=== PATIENT | male | born 2000 | race Caucasian/White ===

== ENCOUNTER 2024-05-14 23:27 | Emergency (ER) | payer BC, SELFPAY ==
[2024-05-14 23:35] VITALS: BP 126/71; PULSE 108; RESP 18; TEMP 36.1; O2SAT 95; BMI 30.8
--- NOTE | 2024-05-14 23:54 | ED_ITS ---
HPI - General Adult General Time Seen by Provider: 23:54 Date Seen: 05/22/24 Chief complaint: Edema Stated complaint: L swollen, hot/painful Time Seen by Provider: 05/14/24 23:53 Source: patient and RN notes reviewed Mode of arrival: ambulatory Limitations: no limitations History of Present Illness HPI narrative: This 23-year-old male is coming in with left calf pain that has been progressively worsening over the last 4 days. He notes absolutely no trauma, does not remember bumping it, remembers no pain with anything like going upper downstairs. There is no history of trauma, he has had no travel. He has had no fevers or chills, no night sweats. He notes no pain elsewhere in muscles, no joint pains. It hurts in the calf, he has had progressive increase in pain with attempts to ambulate, hurts to bear any weight. He is not on any medicines outside of inhalers for asthma. He has had no recent illness. There is family history of blood clots per his report although he has never personally had 1. He has tried Tylenol and ibuprofen without any relief of pain. Related Data Previous Rx's ?Medication ?Instructions ?Recorded ketorolac 10 mg tablet 10 mg PO Q6H PRN pain #20 tabs 05/15/24 Allergies Allergy/AdvReac Type Severity Reaction Status Date / Time iodine Allergy Intermediate Verified 05/14/24 23:39 Review of Systems Status of ROS: Reports: 6 or more systems reviewed and unremarkable except as noted in History and below [facility] Medical History (Updated 05/15/24 @ 02:38 by Neeta Rousseau MD) Asthma ?J45.909 - Unspecified asthma, uncomplicated (ICD-10) Social History Smoking Status: Current every day smoker Do you use any of these nicotine containing products: E-Cigarettes and Vaping Products Second hand tobacco smoke exposure: No How often do you have a drink containing alcohol: 2-4 times a month AUDIT-C Alcohol total score: 2 Non-prescribed substance use: marijuana (any form) Exam Const: Vital Signs, click to edit/add: Vital Signs - 24 hr 05/14/24 23:35 05/15/24 00:39 05/15/24 01:43 Temperature 97.0 F L Pulse Rate 58 L Pulse Rate [Left F emoral] 108 H 110 H Respiratory Rate 18 18 Blood Pressure Blood Pressure [Ri t Upper Arm] 126/71 127/79 Pulse Oximetry 95 91 90 Oxygen Delivery Me thod Room Air Room Air Room Air 05/15/24 02:02 05/15/24 02:31 Temperature Pulse Rate Pulse Rate [Left F emoral] Respiratory Rate 16 Blood Pressure 135/84 148/95 H Blood Pressure [Ri ght Upper Arm] Pulse Oximetry Oxygen Delivery Me thod This 23-year-old male is alert, interactive, no apparent distress but does seem to be in pain. Pupils are equal round reactive, sclera clear, face atraumatic, speech is normal. Lungs are clear, good air entry, no wheezing or crackles, no tachypnea, no prolonged expiratory phase. CV fast but regular, no murmur, normal S1-S2, no S3-S4. Inspection of both of his lower extremities reveals mild indentation of sock line on both lower extremities. I note no erythema, no significant edema, neurovascular is intact with normal sensation, normal peripheral pulses bilaterally. If I palpate anywhere over his left calf he has excruciating pain, pain seems to be out of proportion to examination. He has no pain about the ankle on the left side no joint effusion, can mobilize the ankle. There is no pain about his left knee, no popliteal fossa masses noted or tenderness. Touching his left lower extremity anywhere is excruciating for him. Initially when I just palpated along his anterior tibia he grimaced in yelled out in pain but when I asked later where his pain was he states it is more in the calf. I did go back over the anterior tibial area and he states it really was not that tender there. He cries out in pain if I palpate anywhere over the medial or lateral gastrocnemius muscle bodies. Documenting provider has reviewed patient's vital signs: yes Course Course ED Course: This patient seems to have pain out of proportion to examination but no trauma. He has normal distal sensation and pulses, this would be extremely unusual witho ut trauma to be having a compartment syndrome that is developing. Blood clot is a possibility, will do veinous ultrasound. Will do screening labs, will include D-dimer and CK. I doubt that this is infectious. Again without trauma, doubt that this is development of regional pain syndrome. It is difficult to pinpoint exactly what the etiology is here, again without trauma, doubt any fracture or muscle injury. Did look on [place] prescribing website, patient has no prescriptions within the last year. Reevaluation(s) Time of Reevaluation #1: 01:06 Reevaluation #1: Patient currently sleeping, does awaken easily. Went in to advise him that I have ordered x-rays of his lower extremity just to ensure no bony pathology. The preliminary report from the bondactor machine operator is negative for DVT. Time of Reevaluation #2: 02:30 Reevaluation #2: Patient was resting again when I came in, arouses easily. Discussed that there is no fracture on the plain x-rays, ultrasound is not showing any DVT per bondactor machine operator. Labs are reassuring. I think a period of observation and follow-up outpatient is indicated. We discussed some pain management, agreed upon injection of Toradol. Will get him crutches so he can ambulate with diminished pain. He unfortunately does not have a diagnosis, am not sure ren having pain. He is going to need to follow up in clinic for further management and evaluation. Vital Signs Vital signs: Initial Vital Signs Temperature 97.0 F L 05/14/24 23:35 Temperature Source Temporal Artery Scan 05/14/24 23:35 Pulse Rate 108 H 05/14/24 23:35 Pulse Rhythm Regular 05/14/24 23:35 Respiratory Rate 18 05/14/24 23:35 Blood Pressure 126/71 05/14/24 23:35 Blood Pressure Mean 89 05/14/24 23:35 Blood Pressure Position Sitting 05/14/24 23:35 Pulse Oximetry 95 05/14/24 23:35 Oxygen Delivery Method Room Air 05/14/24 23:35 Vital Signs Temperature 97.0 F L 05/14/24 23:35 Pulse Rate 108 H 05/14/24 23:35 Respiratory Rate 18 05/14/24 23:35 Blood Pressure 126/71 05/14/24 23:35 Pulse Oximetry 95 05/14/24 23:35 Oxygen Delivery Method Room Air 05/14/24 23:35 Temperature 97.0 F L 05/14/24 23:35 Pulse Rate 58 L 05/15/24 01:43 Respiratory Rate 16 05/15/24 02:02 Blood Pressure 148/95 H 05/15/24 02:31 Pulse Oximetry 90 05/15/24 01:43 Oxygen Delivery Method Room Air 05/15/24 01:43 Medications Administered Medications: Discontinued Medications Generic Name Dose Route Start Last Admin Trade Name Jimenezq PRN Reason Stop Dose Admin Ketorolac Tromethamine 30 mg 05/15/24 02:35 05/15/24 02:43 Ketorolac 30 Mg/Ml Inj IM 05/15/24 02:36 30 mg ONCE ONE Administration Medical Decision Making Lab Data Lab results reviewed: Yes I reviewed the patient's lab results Labs: Lab Results 05/15/24 Range/Units 00:20 WBC 9.87 (4.50-11.00) K/uL RBC 4.77 (4.30-5.90) m/uL Hgb 14.2 (13.5-17.5) gm/dL Hct 43.1 (37.0-53.0) % MCV 90 (80-100) fL MCH 30 (26-34) pg MCHC 33 (32-36) gm/dL RDW Coeff of Adenike 12.7 (11.5-15.5) % Plt Count 244 (140-440) K/uL Neut % (Auto) 62.2 (42.0-72.0) % Lymph % (Auto) 20.4 (20-44) % [place] % (Auto) 12.0 H (0.0-11.0) % Eos % (Auto) 4.8 (0.0-7.0) % Baso % (Auto) 0.4 (0.0-3.0) % Neut # (Auto) 6.15 (1.7-7.0) K/uL Lymph # (Auto) 2.01 (0.90-2.90) K/uL [place] # (Auto) 1.20 H (0.00-0.90) K/UL Eos # (Auto) 0.47 (0.00-0.50) K/uL Baso # (Auto) 0.04 (0.00-0.30) K/uL Abs Immat Gran (auto) 0.02 (0.00-0.30) K/uL Imm/Tot Granulo (auto) 0.2 % D-Dimer Quant (PE/DVT) 0.10 (0.00-0.50) ug/ml Sodium 137 (135-149) mmol/L Potassium 3.9 (3.6-5.1) mmol/L Chloride 100 (96-114) mmol/L Carbon Dioxide 27 (20-32) mmol/L Anion Gap 10 (7-15) mEq/L BUN 17 (5-24) mg/dL Creatinine 0.9 (0.5-1.5) mg/dL Estimated Creat Clear 134.06 Estimated GFR 125 ml/min Glucose 111 (60-115) mg/dL Calcium 9.5 (8.4-10.6) mg/dL Total Creatine Kinase 141 (54-186) U/L C-Reactive Protein 1.9 H (0.5-1.0) mg/dL Imaging Data Venous US: Attestation: I have reviewed the pertinent imaging results. Radiologist's impression: Patient: ALFREDO SANDHU Facility:?[facility] Patient ID:?[id number] Site Patient ID:?[id number]. Site :?[id number] Study:?US-Extremity Left venous-05/15/2024 1:03:07 AM Ordering Physician:Winter Santacruz Final Report: INDICATION: Left lower extremity swelling. TECHNIQUE: Left lower extremity Doppler venous ultrasound examination was performed. Grayscale and color Doppler images were obtained. COMPARISON: None. FINDINGS: RIGHT LOWER EXTREMITY: Common femoral vein: Fully compressible. No deep vein thrombus. Normal flow and response to augmentation on color Doppler imaging. LEFT LOWER EXTREMITY: Common femoral vein: Fully compressible. No deep vein thrombus. Normal flow and response to augmentation on color Doppler imaging. Superficial femoral vein: Fully compressible. No deep vein thrombus. Normal flow on color Doppler imaging. Deep femoral vein: No deep vein thrombus Popliteal vein: Fully compressible. No deep vein thrombus. Normal flow on color Doppler imaging. Lower calf: The visualized posterior tibial and peroneal veins are fully compressible. No deep vein thrombus. Normal flow and response to augmentation on color Doppler imaging. Superficial veins: The superficial veins, including the greater saphenous vein, remain patent and are fully compressible. Soft tissues: No popliteal fossa fluid collection identified. IMPRESSION: No deep vein thrombus within the left lower extremity. XR left tib/fib: Attestation: I have reviewed the pertinent imaging results. My impression: I see no acute fracture on my preliminary review. Radiologist's impression: Patient: ALFREDO SANDHU Facility:?[facility] Patient ID:?[id number] Site Patient ID:?[id number]. Site :?[id number] Study:?XRay-Extremity Left TIB [id number]/15/2024 1:27:23 AM Ordering Physician:Winter Santacruz Final Report: INDICATION: Pain. TECHNIQUE: Left tibia and fibula 2 views. COMPARISON: None. FINDINGS: No acute fractures or malalignment. Joint spaces are maintained. Soft tissue swelling. IMPRESSION: Soft tissue swelling without evidence of acute osseous abnormality. Dictated by Fausto Boles MD @ 05/15/2024 2:19:32 AM (Electronic Signature) Discharge Plan Discharge Clinical Impression: Pain of left calf Patient Disposition: Home, Self-Care Condition: Stable Instructions: Leg Pain (ED) Additional Instructions: Use crutches to decrease pain in the leg with ambulation. Can try some ice to the lower extremity, elevate this leg and see if that helps. Can use Tylenol 1000 mg 3 times a day baseline for pain. Have sent in prescription for Toradol, can be used with Tylenol. Once the Toradol is gone, can transition to ibuprofen. Do need to get scheduled in clinic for follow-up for further evaluation and ongoing management of this. I am not exactly sure why you are having pain in your calf but do think you need follow-up in clinic. Consideration for orthopedic referral, advanced imaging, recheck of labs could be considered. If you develop fever, see a rash in the leg or area of the leg becoming red, seek re-evaluation as that could be a sign of infection or cellulitis. This was not found tonight but do think you should watch for this. Activity Level: Activity as Tolerated Prescriptions: New ketorolac 10 mg tablet 10 mg PO Q6H PRN (Reason: pain) Qty: 20 0RF Rx Instructions: maximum total duration of 5 days from all oral, intranasal, or parenteral formulations Follow Up/Referrals: Provider,Not a Local [Primary Care Provider] - Stand Alone Forms: [employer] Info Instructions
--- NOTE | 2024-05-15 | CRLHL7_ITS ---
For Patients: As a result of the Century Cures Act, medical imaging exams and procedure reports are released immediately into your electronic medical record. You may view this report before your referring provider. If you have questions, please contact your health care provider. INDICATION: Left lower extremity swelling. TECHNIQUE: Left lower extremity Doppler venous ultrasound examination was performed. Grayscale and color Doppler images were obtained. COMPARISON: None. FINDINGS: RIGHT LOWER EXTREMITY: Common femoral vein: Fully compressible. No deep vein thrombus. Normal flow and response to augmentation on color Doppler imaging. LEFT LOWER EXTREMITY: Common femoral vein: Fully compressible. No deep vein thrombus. Normal flow and response to augmentation on color Doppler imaging. Superficial femoral vein: Fully compressible. No deep vein thrombus. Normal flow on color Doppler imaging. Deep femoral vein: No deep vein thrombus Popliteal vein: Fully compressible. No deep vein thrombus. Normal flow on color Doppler imaging. Lower calf: The visualized posterior tibial and peroneal veins are fully compressible. No deep vein thrombus. Normal flow and response to augmentation on color Doppler imaging. Superficial veins: The superficial veins, including the greater saphenous vein, remain patent and are fully compressible. Soft tissues: No popliteal fossa fluid collection identified. IMPRESSION: No deep vein thrombus within the left lower extremity. Dictated by Esvin Perry MD @ 05/15/2024 2:53:19 AM (Electronically Signed)
[2024-05-15 00:32] LABS: Basophils Absolute Auto 0.04 K/uL (0.00-0.30); Basophils Percent Auto 0.4 % (0.0-3.0); Eosinophils Absolute Auto 0.47 K/uL (0.00-0.50); Eosinophils Percent Auto 4.8 % (0.0-7.0); Hematocrit 43.1 % (37.0-53.0); Hemoglobin* 14.2 gm/dL (13.5-17.5); Immature Granulocytes Abs Auto 0.02 K/uL (0.00-0.30); Immature Granulocytes Pct Auto 0.2 %; Lymphocytes Absolute Auto 2.01 K/uL (0.90-2.90); Lymphocytes Percent Auto 20.4 % (20-44); Mean Corpuscular HGB Conc 33 gm/dL (32-36); Mean Corpuscular Hemoglobin 30 pg (26-34); Mean Corpuscular Volume 90 fL (80-100); Neutrophils Absolute Auto 6.15 K/uL (1.7-7.0); Neutrophils Percent Auto 62.2 % (42.0-72.0); Platelet Count* 244 K/uL (140-440); RDW Coefficient of Variation % 12.7 % (11.5-15.5); Red Blood Count 4.77 m/uL (4.30-5.90); White Blood Count* 9.87 K/uL (4.50-11.00)
[2024-05-15 00:38] LABS: Slide Review Reflex No
[2024-05-15 00:39] VITALS: BP 127/79; PULSE 110; RESP 18; O2SAT 91
--- NOTE | 2024-05-15 00:47 | CRLHL7_ITS ---
For Patients: As a result of the Century Cures Act, medical imaging exams and procedure reports are released immediately into your electronic medical record. You may view this report before your referring provider. If you have questions, please contact your health care provider. INDICATION: Pain. TECHNIQUE: Left tibia and fibula 2 views. COMPARISON: None. FINDINGS: No acute fractures or malalignment. Joint spaces are maintained. Soft tissue swelling. IMPRESSION: Soft tissue swelling without evidence of acute osseous abnormality. Dictated by Fausto Boles MD @ 05/15/2024 2:19:32 AM (Electronically Signed)
[2024-05-15 00:50] LABS: Chloride* 100 mmol/L (96-114); Potassium* 3.9 mmol/L (3.6-5.1); Sodium* 137 mmol/L (135-149)
[2024-05-15 00:53] LABS: Anion Gap 10 mEq/L (7-15); Carbon Dioxide* 27 mmol/L (20-32); Creatine Kinase* 141 U/L (54-186); Creatinine* 0.9 mg/dL (0.5-1.5); Est. Creatinine Clearance* 134.06; Estimated Glomerular Filt Rate 125 ml/min
[2024-05-15 00:54] LABS: Blood Urea Nitrogen* 17 mg/dL (5-24); Calcium* 9.5 mg/dL (8.4-10.6); Glucose* 111 mg/dL (60-115)
[2024-05-15 00:56] LABS: C Reactive Protein* 1.9 mg/dL (0.5-1.0)
[2024-05-15 01:43] VITALS: PULSE 58; O2SAT 90
[2024-05-15 02:02] VITALS: BP 135/84; RESP 16
[2024-05-15 02:31] VITALS: BP 148/95
[2024-05-15] MEDS: KETOROLAC 30 MG/ML inj IM (02:43)
== END 2024-05-15 02:49 | disposition home or self-care (01) ==
PROVIDERS: Emergency Provider Family Medicine
DX: M79.605 Pain in left leg (principal)
CPT/HCPCS: 36415; 73590; 80048; 82550; 85025; 85379; 86140; 93971; 96372; 99283; 99284; 99285; J1885